=== PATIENT | female | born 1960 | race Caucasian/White ===

== ENCOUNTER 2018-01-05 12:19 | Emergency (ER) | payer OTHER ==
[~2018-01-05] VITALS: Ht 152.4 cm; Wt 63.5 kg
[~2018-01-05 12:19] MED LIST: HYDROCODON-ACE1 EAC8 PO; KLONOPIN0.5 MG PO; METHOCARBAMOL500 M2 PO; NORCO 10-325 T1 EACH PO; NORCO 5-325 TA1 EAC1 PO; NORFLEX100 MG PO; PAXIL10 MG PO; SERTRALINE HCL50 MG PO; TRAZODONE HCL50 MG PO; ZANAFLEX4 MG PO
[2018-01-05] MEDS ORDERED: CLONAZEPAM 0.50.5 M1 PO (12:39)
[2018-01-05] MEDS ORDERED: REMERON15 MG PO (12:39)
[2018-01-05] MEDS ORDERED: VISTARIL 25 MG25 M1 PO (12:56)
[2018-01-05 13:17] VITALS: BP 124/79
== END 2018-01-05 13:18 | disposition home or self-care (01) ==
LOC: M.ERS 12:19
DX: F32.9 Major depressive disorder, single episode, unspecified (principal); F41.9 Anxiety disorder, unspecified; F17.210 Nicotine dependence, cigarettes, uncomplicated

== ENCOUNTER 2018-02-17 18:59 | Emergency (ER) | payer OTHER ==
[~2018-02-17] VITALS: Ht 162.6 cm; Wt 63.5 kg
[~2018-02-17 18:59] MED LIST changes: +CLONAZEPAM 0.50.5 M1 PO; +REMERON15 MG PO; +VISTARIL 25 MG25 M1 PO
[2018-02-17] MEDS ORDERED: ZOLOFT (19:19)
[2018-02-17] MEDS ORDERED: IBUPROFEN 800800 MG PO (20:04)
[2018-02-17] MEDS ORDERED: ACETAMINOPHEN-1 EAC1 PO (20:04)
[2018-02-17] MEDS ORDERED: PENICILLIN V P500 MG PO (20:04)
[2018-02-17 20:20] VITALS: BP 116/84
== END 2018-02-17 20:20 | disposition home or self-care (01) ==
LOC: M.ERS 18:59
DX: K08.89 Other specified disorders of teeth and supporting structures (principal); F32.9 Major depressive disorder, single episode, unspecified; F41.9 Anxiety disorder, unspecified; F17.210 Nicotine dependence, cigarettes, uncomplicated